=== PATIENT | male | born 1995 ===

== ENCOUNTER 2018-04-19 12:07 | Emergency (ER) | payer OTHER ==
[2018-04-19 12:12] VITALS: BP 141/84; PULSE 77; RESP 16; TEMP 99.8; O2SAT 97
--- NOTE | 2018-04-19 12:38 | ED PDOC ---
HPI: General Adult Time Seen by Provider: 04/19/18 12:23 Chief Complaint (Nursing): Abnormal Skin Integrity Chief Complaint (Provider): foot pain History Per: Patient, Informatics Specialist (Gil SummersAdjudication Specialist [id number]) History/Exam Limitations: no limitations Onset/Duration Of Symptoms: Days (x1) Current Symptoms Are (Timing): Still Present Additional Complaint(s): Pepe Vines is a 22 year old male who is presenting to the ED for evaluation of left foot swelling and pain onset yesterday afternoon. Patient states that his toes are swollen and it hurts to walk. He denies any fevers or taking any medications for the pain prior to arrival. Patient also denies any injury or trauma to the foot and offers no other medical complaints at this time. PMD: none Past Medical History Reviewed: Historical Data, Nursing Documentation, Vital Signs Vital Signs: Last Vital Signs Temp 99.8 F H 04/19/18 12:10 Pulse 77 04/19/18 12:10 Resp 16 04/19/18 12:10 BP 141/84 04/19/18 12:10 Pulse Ox 97 04/19/18 12:10 - Medical History PMH: No Chronic Diseases - Surgical History Surgical History: Appendectomy - Family History Family History: States: No Known Family Hx - Living Arrangements Living Arrangements: With Family - Social History Current smoker - smoking cessation education provided: No Alcohol: Occasional Drugs: Denies - Home Medications Home Medications: Ambulatory Orders Medication Instructions Recorded Clindamycin [Cleocin] 300 mg PO QID #28 cap 04/19/18 Clotrimazole 1% Cream [Lotrimin 1%] 1 gm TP BID #1 tube 04/19/18 Ibuprofen [Motrin Tab] 800 mg PO Q8 PRN #20 tab 04/19/18 - Allergies Allergies/Adverse Reactions: Allergies Allergy/AdvReac Type Severity Reaction Status Date / Time No Known Allergies Allergy Verified 04/19/18 12:09 Review of Systems ROS Statement: Except As Marked, All Systems Reviewed And Found Negative Constitutional: Negative for: Fever Musculoskeletal: Positive for: Foot Pain (left) Physical Exam - Reviewed Nursing Documentation Reviewed: Yes Vital Signs Reviewed: Yes - Physical Exam Appears: Positive for: Well, Non-toxic, No Acute Distress Head Exam: Positive for: ATRAUMATIC, NORMAL INSPECTION, NORMOCEPHALIC Skin: Negative for: Rash Eye Exam: Positive for: Normal appearance Extremity: Positive for: Normal ROM, Other (localized cellulitis to the left 4th toe and dorsal aspect of left foot overlying 3rd 4th and 5th metatarsal region; skin breakdown noted to interdigital spaces between toes consistent with Athlete's Foot). Negative for: Deformity Neurologic/Psych: Positive for: Alert, Oriented. Negative for: Motor/Sensory Deficits - ECG O2 Sat by Pulse Oximetry: 97 (RA) Pulse Ox Interpretation: Normal Medical Decision Making Medical Decision Making: Time: Impression: 22 year old male with Athlete's Foot and Cellulitis Plan: --Clindamycin 300 mg PO --Motrin Tab 600 mg PO Upon provider evaluation patient is medically stable, and requires no further treatment in the ED at this time. Patient will be discharged with Rx for clotrimazole cream, Clindamycin and Motrin. Counseling was provided and all questions were answered regarding diagnosis and need for follow up with podiatry clinic. There is agreement to discharge plan. Return if symptoms persist or worsen. Patient will be provided with referral to the podiatry clinic and advised to follow up within 2-3 days. Scribe Attestation: Documented by Evelia Isabel, acting as a scribe for Ailin Roberson PA-C. Provider Scribe Attestation: All medical record entries made by the Scribe were at my direction and personally dictated by me. I have reviewed the chart and agree that the record accurately reflects my personal performance of the history, physical exam, medical decision making, and the department course for this patient. I have also personally directed, reviewed, and agree with the discharge instructions and disposition. Disposition - Clinical Impression Clinical Impression: Cellulitis of foot, Athletes foot Counseled Patient/Family Regarding: Diagnosis, Need For Followup, Rx Given - Disposition Referrals: Podiatry Clinic [Outside] Disposition: Routine/Home Disposition Time: 12:53 Condition: STABLE Additional Instructions: Take prescription meds as directed. Contact podiatry clinic tomorrow morning to arrange for follow-up visit this coming week. Prescriptions: Clindamycin [Cleocin] 300 mg PO QID #28 cap Clotrimazole 1% Cream [Lotrimin 1%] 1 gm TP BID #1 tube Ibuprofen [Motrin Tab] 800 mg PO Q8 PRN #20 tab PRN Reason: Pain, Moderate (4-7) Instructions: Cellulitis (Skin Infection), Adult (DC), Athlete's Foot Forms: [employer] (Kiswahili) Print Language: TURKISH
== END 2018-04-19 13:05 | disposition home or self-care (01) ==
LOC: H.ER 12:07
DX: L03.119 Cellulitis of unspecified part of limb (principal); B35.3 Tinea pedis